=== PATIENT | female | born 1970 ===

== ENCOUNTER 2022-12-31 07:45 | Day surgery (SDC) | payer OTHER ==
[~2022-12-31] VITALS: Ht 170.2 cm; Wt 72.6 kg
[~2022-12-31 07:45] MED LIST: [UNRECOGNIZED DRUG - CODE] PO; [UNRECOGNIZED DRUG - OTHER] PO
== END 2022-12-31 16:30 | disposition home or self-care (01) ==
LOC: CIR.AMB 07:45
PROVIDERS: ATTEND Obstetrics & Gynecology
DX: N70.91 Salpingitis, unspecified (principal); R10.2 Pelvic and perineal pain; Z20.822 Contact with and (suspected) exposure to COVID-19; E78.00 Pure hypercholesterolemia, unspecified; E03.9 Hypothyroidism, unspecified; I10 Essential (primary) hypertension; Z88.8 Allergy status to other drugs, medicaments and biological substances